=== PATIENT | female | born 1965 | race Caucasian/White ===

== ENCOUNTER → 2017-03-16 | Outpatient (CLI) | payer BC ==
[2017-03-16 07:14] LABS: HEMOGLOBIN 13.5 gm/dl (12.3-15.3); RED BLOOD COUNT 4.25 M/UL (4.00-5.10); WHITE BLOOD COUNT 9.2 K/UL (4.5-11.0)
[2017-03-16 07:35] LABS: BUN/CREATININE RATIO 28 (0-10)
== END ==
LOC: LAB 06:41
PROVIDERS: Nurse Practitioner
DX: Z00.00 Encounter for general adult medical examination without abnormal findings (principal); I10 Essential (primary) hypertension; E03.9 Hypothyroidism, unspecified; E78.5 Hyperlipidemia, unspecified; Z13.1 Encounter for screening for diabetes mellitus
CPT/HCPCS: 36415; 80053; 80061; 83036; 84436; 84443; 85025

== ENCOUNTER 2021-01-17 06:38 | Emergency (ER) | payer BC, OTHER ==
[~2021-01-17 06:38] MED LIST: BACLOFEN20 MG PO; BRINZOLAMIDE 1% EYEBOTH; CLARITIN10 MG PO; IMITREX100 MG PO; INDERAL LA CAP160 MG PO; MELOXICAM15 MG PO; MOBIC15 MG PO; NORCO 10-325 T1 EACH PO; PAROXETINE HCL20 MG PO; PAXIL20 MG PO; PROPRANOLOL PO; REQUIP1 MG PO; ROPINIROLE HCL1 MG PO; SYNTHROID100 MCG PO; SYNTHROID50 MCG PO; VIT D PO; VITAMIN B-COMP1 EACH PO; VITAMIN D400 UNI2 PO
== END 2021-01-17 07:56 | disposition left against medical advice (07) ==
LOC: ER1 06:38
DX: M25.512 Pain in left shoulder (principal); E11.9 Type 2 diabetes mellitus without complications; E03.9 Hypothyroidism, unspecified; Z79.899 Other long term (current) drug therapy; M54.2 Cervicalgia; Z90.710 Acquired absence of both cervix and uterus
CPT/HCPCS: 73030; 99283

== ENCOUNTER → 2021-07-27 | Outpatient (CLI) | payer BC, OTHER | LOC: RAD 21:48 | DX: M25.551 Pain in right hip (principal) | CPT/HCPCS: 73522 ==

== ENCOUNTER → 2021-11-28 | Outpatient (CLI) | payer BC, OTHER | LOC: MAMO 11-16 09:00 | DX: Z12.31 Encounter for screening mammogram for malignant neoplasm of breast (principal) | CPT/HCPCS: 77063; 77067 ==